=== PATIENT | male | born 1975 | race Caucasian/White ===

== ENCOUNTER 2017-04-03 16:02 | Inpatient (IN) | payer OTHER ==
[2017-04-03 16:28] LABS: Hematocrit 43.3 % (35.5-45.6); Hemoglobin 14.4 gm/dl (11.8-15.2); Mean Corpuscular HGB Conc 33 % (32-34); Mean Corpuscular Hemoglobin 32 pg (28-32); Mean Corpuscular Volume 95 fl (84-94); Platelet Count 268 K/mm3 (140-440); Red Blood Count 4.57 M/mm3 (3.65-5.03); Red Cell Distribution Width 14.3 % (13.2-15.2)
[2017-04-03 16:36] LABS: White Blood Count 26.8 K/mm3 (4.5-11.0)
[2017-04-03 16:48] LABS: Anion Gap 18 mmol/L; BUN/Creatinine Ratio 20; Blood Urea Nitrogen 18 mg/dL (9-20); Calcium 8.5 mg/dL (8.4-10.2); Carbon Dioxide 25 mmol/L (22-30); Chloride 96.7 mmol/L (98-107); Glucose 111 mg/dL (75-100); Potassium 4.3 mmol/L (3.6-5.0); Sodium 135 mmol/L (137-145)
[2017-04-03 19:42] LABS: Basophils % (Manual) 0 % (0.0-1.8); Blastocytes % (Manual) 0 %; Eosinophils % (Manual) 0.5 % (0.0-4.3); Total Cells Counted Percent 6.5
[2017-04-03 19:43] LABS: Diff Status Complete; Platelet Estimate Consistent w Auto; RBC Morphology Normal
[2017-04-03] MEDS ORDERED: NACL ONE (20:45)
--- NOTE | 2017-04-03 20:48 | Emergency Department Report ---
HPI - General Chief Complaint: Urogenital-Male Time Seen by Provider: 04/03/17 20:14 - HPI HPI: This is a 42-year-old male presents to the emergency department, sent in by Dr. Rodríguez from [facility] for further evaluation of the patient's urinary retention. Patient says that he has been having a 2 day history of trouble with urination. He denies ever having this problem before. He denies any abdominal, flank or back pain. He denies any fever, nausea or vomiting. He otherwise denies any past medical history. He has not taken anything and was not given anything for his symptoms prior to presentation. ED Past Medical Hx - Past Medical History Previous Medical History?: No - Surgical History Past Surgical History?: No - Social History Smoking Status: Never Smoker Substance Use Type: Alcohol ED Review of Systems ROS: Stated complaint: URINE PROBLEMS Other details as noted in HPI Comment: All other systems reviewed and negative Constitutional: denies: chills, fever Eyes: denies: eye pain, eye discharge, vision change ENT: denies: ear pain, throat pain Respiratory: denies: cough, shortness of breath, wheezing Cardiovascular: denies: chest pain, palpitations Gastrointestinal: denies: abdominal pain, nausea, diarrhea Genitourinary: dysuria. denies: discharge Musculoskeletal: denies: back pain, joint swelling, arthralgia Skin: denies: rash, lesions Neurological: denies: headache, weakness, paresthesias Physical Exam - Physical Exam Vital Signs: Vital Signs 04/03/17 04/03/17 04/03/17 16:09 20:15 20:26 Temperature 98.3 F 98.2 F Pulse Rate 88 Respiratory 16 18 Rate Blood Pressure 128/75 101/60 O2 Sat by Pulse 98 96 98 Oximetry Physical Exam: GENERAL: The patient is well-developed well-nourished. HENT: Normocephalic. Atraumatic. Patient has moist mucous membranes. EYES: Extraocular motions are intact. Pupils equal reactive to light bilaterally. NECK: Supple. Trachea is midline. CHEST/LUNGS: Clear to auscultation. There is no respiratory distress noted. HEART/CARDIOVASCULAR: Regular. There is no tachycardia. There is no gallop rub or murmur. ABDOMEN: Abdomen is soft, nontender. Patient has normal bowel sounds. There is some mild lower abdominal and/or suprapubic distention. SKIN: Skin is warm and dry. NEURO: The patient is awake, alert, and oriented. The patient is cooperative. The patient has no focal neurologic deficits. The patient has normal speech and gait. MUSCULOSKELETAL: There is no tenderness or deformity. There is no limitation range of motion. There is no evidence of acute injury. ED Course Vital Signs 04/03/17 04/03/17 04/03/17 16:09 20:15 20:26 Temperature 98.3 F 98.2 F Pulse Rate 88 Respiratory 16 18 Rate Blood Pressure 128/75 101/60 O2 Sat by Pulse 98 96 98 Oximetry ED Medical Decision Making - Lab Data Result diagrams: 04/03/17 16:18 04/03/17 16:18 - Radiology Data Radiology results: report reviewed PROCEDURE: CT ABDOMEN PELVIS W CON TECHNIQUE: Computerized axial tomography of the abdomen and pelvis was performed after the IV injection of iodinated nonionic contrast. HISTORY: urinary retention, leukocytosis, abd pain COMPARISON: No prior studies are available for comparison. FINDINGS: Lower Lung alfaro: There is a small amount of dependent atelectasis. No dense consolidations or effusions are identified. Upper Abdomen: There several small, subcentimeter low-density lesions scattered in the right and left lobes of the liver. These are all very similar in appearance and I suspect represents small hepatic cysts although are difficult to characterize given their small size. The liver is otherwise unremarkable. The gallbladder, the adrenal glands, the pancreas and the spleen are unremarkable. Kidneys, Ureters and Urinary bladder: No abnormalities are seen. Retroperitoneum: Atherosclerotic changes are seen in the abdominal aorta. No aneurysm is visualized. Nonspecific subcentimeter lymph nodes are seen in the retroperitoneum. No pathologically enlarged lymph nodes are identified. Bowel: The colon is unremarkable. Normal-appearing appendix is seen in the right lower quadrant. There is thickening of the 4th portion of the duodenum and mild mucosal prominence in the proximal jejunum in a few loops of small bowel laterally in the left lower quadrant. Bowel loops otherwise are unremarkable. Minimal umbilical hernia visualized containing a small amount of adipose tissue. No herniated loops of bowel are seen. Reproductive organs: Prostate gland does not appear to be enlarged. Other: No acute bony abnormalities are identified. IMPRESSION: Mild wall thickening seen in the 4th portion the duodenum. Mucosal prominence seen in the proximal small bowel left upper quadrant and left lower quadrant. I cannot exclude a nonspecific enteritis. Small low-density nodules scattered in the right and left lobes of the liver as described. I suspect these represent small cysts although are difficult to characterize given their small size. No other abnormalities are identified. Transcribed By: JOHN Dictated By: SCOOTER CHEEK MD Electronically Authenticated By: SCOOTER CHEEK MD Signed Date/Time: 04/03/17 2140 - Medical Decision Making 42-year-old presents with 2 day history of some urinary retention. He was unable to leave any urine while in the emergency department until he was catheterized. Prior to this I looked with an ultrasound and there appeared to be a moderate amount of urine within the bladder. His labs show a 27,000 white blood cell count with a left shift. CT of the abdomen and pelvis with IV contrast did not show any infectious etiology or any obvious reason for his urinary retention. Once the catheter was placed, he put out about 500 mL of urine and has some relief. Urinalysis did not show any urinary tract infection. He was started empirically on some Zosyn and blood and urine cultures have been sent. Vital signs stable and being afebrile. He will be admitted to the hospital for further evaluation and treatment and has been accepted for admission by the hospitalist, Dr Castillo. - Differential Diagnosis UTI, BPH, Malginancy, Nephrolithiasis, bladder spasm Critical Care Time: No Critical care attestation.: If time is entered above; I have spent that time in minutes in the direct care of this critically ill patient, excluding procedure time. ED Disposition Clinical Impression: Urinary retention Leukocytosis Qualifiers: Leukocytosis type: bandemia Qualified Code(s): D72.825 - Bandemia Disposition: OP ADMIT IP TO THIS HOSP Is pt being admited?: Yes Condition: Stable Referrals: PRIMARY CARE, [Primary Care Provider] - 3-5 Days Time of Disposition: 00:20
--- NOTE | 2017-04-03 21:42 | Cat Scan Report ---
FINAL REPORT PROCEDURE: CT ABDOMEN PELVIS W CON TECHNIQUE: Computerized axial tomography of the abdomen and pelvis was performed after the IV injection of iodinated nonionic contrast. HISTORY: urinary retention, leukocytosis, abd pain COMPARISON: No prior studies are available for comparison. FINDINGS: Lower Lung alfaro: There is a small amount of dependent atelectasis. No dense consolidations or effusions are identified. Upper Abdomen: There several small, subcentimeter low-density lesions scattered in the right and left lobes of the liver. These are all very similar in appearance and I suspect represents small hepatic cysts although are difficult to characterize given their small size. The liver is otherwise unremarkable. The gallbladder, the adrenal glands, the pancreas and the spleen are unremarkable. Kidneys, Ureters and Urinary bladder: No abnormalities are seen. Retroperitoneum: Atherosclerotic changes are seen in the abdominal aorta. No aneurysm is visualized. Nonspecific subcentimeter lymph nodes are seen in the retroperitoneum. No pathologically enlarged lymph nodes are identified. Bowel: The colon is unremarkable. Normal-appearing appendix is seen in the right lower quadrant. There is thickening of the 4th portion of the duodenum and mild mucosal prominence in the proximal jejunum in a few loops of small bowel laterally in the left lower quadrant. Bowel loops otherwise are unremarkable. Minimal umbilical hernia visualized containing a small amount of adipose tissue. No herniated loops of bowel are seen. Reproductive organs: Prostate gland does not appear to be enlarged. Other: No acute bony abnormalities are identified. IMPRESSION: Mild wall thickening seen in the 4th portion the duodenum. Mucosal prominence seen in the proximal small bowel left upper quadrant and left lower quadrant. I cannot exclude a nonspecific enteritis. Small low-density nodules scattered in the right and left lobes of the liver as described. I suspect these represent small cysts although are difficult to characterize given their small size. No other abnormalities are identified.
[2017-04-03 23:15] LABS: Bacteria,Urine 1+ /HPF (Negative); Bilirubin,Urine NEG (Negative); Blood,Urine SM (Negative); Ketones,Urine 20 mg/dL (Negative); Leukocyte Esterase,Urine NEG (Negative); Mucus,Urine FEW /HPF; Nitrite,Urine NEG (Negative); Protein,Urine <15 mg/dL mg/dL (Negative)
[2017-04-03] MEDS ORDERED: ZOSYN/NS 4.5GM/100ML 4.5 GM/100 ML VIAL IV ONE (23:32)
[2017-04-04] MEDS ORDERED: MILK OF MAGNESIA PO PRN (06:24)
[2017-04-04] MEDS ORDERED: TYLENOL PO PRN (06:24)
[2017-04-04] MEDS ORDERED: DULCOLAX PR PRN (06:24)
[2017-04-04] MEDS ORDERED: ZOFRAN IV PRN (06:24)
--- NOTE | 2017-04-04 06:28 | History and Physical Report ---
History of Present Illness Date of admission: 04/04/17 02:13 Chief complaint: Trouble making urine History of present illness: 42-year-old man with no significant past medical history who was sent in by his PCP because of inability to pass urine. Patient has been complaining of urinary retention for about 2 days. He has no history of this in the past. This is the first time this is occurring to him. Denies fever and denies chills denies dysuria. Past History Past Medical History: No medical history Past Surgical History: No surgical history Social history: no significant social history Family history: no significant family history Medications and Allergies Allergies Allergy/AdvReac Type Severity Reaction Status Date / Time No Known Allergies Allergy Verified 04/04/17 01:44 Home Medications Medication Instructions Recorded Confirmed Last Taken Type No Known Home Medications [No 04/04/17 04/04/17 Unknown History Reported Home Medications] Active Meds: Active Medications Enoxaparin Sodium (Lovenox) 40 mg SUB-Q QDAY TAMMY Influenza Virus Vaccine Quadrival (Fluarix Quad [id number](36 Mos+) 0.5 ml IM .ONCE ONE Stop: 04/04/17 12:01 Review of Systems All systems: negative Genitourinary Male: urinary retention Exam - Constitutional Vitals: Temp Pulse Resp BP Pulse Ox 98.6 F 71 16 95/52 96 04/04/17 03:43 04/04/17 05:50 04/04/17 05:50 04/04/17 03:43 04/04/17 03:43 General appearance: Present: no acute distress, well-nourished - EENT Eyes: Present: PERRL ENT: hearing intact, clear oral mucosa - Neck Neck: Present: supple, normal ROM - Respiratory Respiratory effort: normal Respiratory: bilateral: CTA - Cardiovascular Heart Sounds: Present: S1 & S2. Absent: rub, click - Extremities Extremities: pulses symmetrical, No edema Peripheral Pulses: within normal limits - Abdominal General gastrointestinal: Present: soft, non-tender, non-distended, normal bowel sounds Male genitourinary: Present: normal - Integumentary Integumentary: Present: clear, warm, dry - Musculoskeletal Musculoskeletal: gait normal, strength equal bilaterally - Psychiatric Psychiatric: appropriate mood/affect, intact judgment & insight - Neurologic Neurologic: CNII-XII intact, moves all extremities Results - Labs CBC & Chem 7: 04/03/17 16:18 04/03/17 16:18 Labs: Laboratory Last Values WBC 26.8 K/mm3 (4.5-11.0) H 04/03/17 16:18 RBC 4.57 M/mm3 (3.65-5.03) 04/03/17 16:18 Hgb 14.4 gm/dl (11.8-15.2) 04/03/17 16:18 Hct 43.3 % (35.5-45.6) 04/03/17 16:18 MCV 95 fl (84-94) H 04/03/17 16:18 MCH 32 pg (28-32) 04/03/17 16:18 MCHC 33 % (32-34) 04/03/17 16:18 RDW 14.3 % (13.2-15.2) 04/03/17 16:18 Plt Count 268 K/mm3 (140-440) 04/03/17 16:18 Add Manual Diff Complete 04/03/17 16:18 Total Counted 200 04/03/17 16:18 Seg Neuts % (Manual) 73.0 % (40.0-70.0) H 04/03/17 16:18 Band Neutrophils % 17.5 % 04/03/17 16:18 Lymphocytes % (Manual) 3.0 % (13.4-35.0) L 04/03/17 16:18 Reactive Lymphs % (Man) 0 % 04/03/17 16:18 Monocytes % (Manual) 6.0 % (0.0-7.3) 04/03/17 16:18 Eosinophils % (Manual) 0.5 % (0.0-4.3) 04/03/17 16:18 Basophils % (Manual) 0 % (0.0-1.8) 04/03/17 16:18 Metamyelocytes % 0 % 04/03/17 16:18 Myelocytes % 0 % 04/03/17 16:18 Promyelocytes % 0 % 04/03/17 16:18 Blast Cells % 0 % 04/03/17 16:18 Nucleated RBC % Not Reportable 04/03/17 16:18 Seg Neutrophils # Man 19.6 K/mm3 (1.8-7.7) H 04/03/17 16:18 Band Neutrophils # 4.7 K/mm3 04/03/17 16:18 Lymphocytes # (Manual) 0.8 K/mm3 (1.2-5.4) L 04/03/17 16:18 Abs React Lymphs (Man) 0.0 K/mm3 04/03/17 16:18 Monocytes # (Manual) 1.6 K/mm3 (0.0-0.8) H 04/03/17 16:18 Eosinophils # (Manual) 0.1 K/mm3 (0.0-0.4) 04/03/17 16:18 Basophils # (Manual) 0.0 K/mm3 (0.0-0.1) 04/03/17 16:18 Metamyelocytes # 0.0 K/mm3 04/03/17 16:18 Myelocytes # 0.0 K/mm3 04/03/17 16:18 Promyelocytes # 0.0 K/mm3 04/03/17 16:18 Blast Cells # 0.0 K/mm3 04/03/17 16:18 WBC Morphology Not Reportable 04/03/17 16:18 Hypersegmented Neuts Not Reportable 04/03/17 16:18 Hyposegmented Neuts Not Reportable 04/03/17 16:18 Hypogranular Neuts Not Reportable 04/03/17 16:18 Smudge Cells Not Reportable 04/03/17 16:18 Toxic Granulation Not Reportable 04/03/17 16:18 Toxic Vacuolation Not Reportable 04/03/17 16:18 Dohle Bodies Not Reportable 04/03/17 16:18 Pelger-Huet Anomaly Not Reportable 04/03/17 16:18 Tracy Rods Not Reportable 04/03/17 16:18 Platelet Estimate Consistent w auto 04/03/17 16:18 Clumped Platelets Not Reportable 04/03/17 16:18 Plt Clumps, EDTA Not Reportable 04/03/17 16:18 Large Platelets Not Reportable 04/03/17 16:18 Giant Platelets Not Reportable 04/03/17 16:18 Platelet Satelliting Not Reportable 04/03/17 16:18 Plt Morphology Comment Not Reportable 04/03/17 16:18 RBC Morphology Normal 04/03/17 16:18 Dimorphic RBCs Not Reportable 04/03/17 16:18 Polychromasia Not Reportable 04/03/17 16:18 Hypochromasia Not Reportable 04/03/17 16:18 Poikilocytosis Not Reportable 04/03/17 16:18 Anisocytosis Not Reportable 04/03/17 16:18 Microcytosis Not Reportable 04/03/17 16:18 Macrocytosis Not Reportable 04/03/17 16:18 Spherocytes Not Reportable 04/03/17 16:18 Pappenheimer Bodies Not Reportable 04/03/17 16:18 Sickle Cells Not Reportable 04/03/17 16:18 Target Cells Not Reportable 04/03/17 16:18 Tear Drop Cells Not Reportable 04/03/17 16:18 Ovalocytes Not Reportable 04/03/17 16:18 Helmet Cells Not Reportable 04/03/17 16:18 Harmon-Barryton Bodies Not Reportable 04/03/17 16:18 Kindred Rings Not Reportable 04/03/17 16:18 Galion Cells Not Reportable 04/03/17 16:18 Bite Cells Not Reportable 04/03/17 16:18 Crenated Cell Not Reportable 04/03/17 16:18 Elliptocytes Not Reportable 04/03/17 16:18 Acanthocytes (Spur) Not Reportable 04/03/17 16:18 Rouleaux Not Reportable 04/03/17 16:18 Hemoglobin C Crystals Not Reportable 04/03/17 16:18 Schistocytes Not Reportable 04/03/17 16:18 Malaria parasites Not Reportable 04/03/17 16:18 Richard Bodies Not Reportable 04/03/17 16:18 Hem Pathologist Commnt No 04/03/17 16:18 Sodium 135 mmol/L (137-145) L 04/03/17 16:18 Potassium 4.3 mmol/L (3.6-5.0) 04/03/17 16:18 Chloride 96.7 mmol/L (98-107) L 04/03/17 16:18 Carbon Dioxide 25 mmol/L (22-30) 04/03/17 16:18 Anion Gap 18 mmol/L 04/03/17 16:18 BUN 18 mg/dL (9-20) 04/03/17 16:18 Creatinine 0.9 mg/dL (0.8-1.5) 04/03/17 16:18 Estimated GFR > 60 ml/min 04/03/17 16:18 BUN/Creatinine Ratio 20 % 04/03/17 16:18 Glucose 111 mg/dL (75-100) H 04/03/17 16:18 Calcium 8.5 mg/dL (8.4-10.2) 04/03/17 16:18 Urine Color Yellow (Yellow) 04/03/17 22:40 Urine Turbidity Clear (Clear) 04/03/17 22:40 Urine pH 7.0 (5.0-7.0) 04/03/17 22:40 Ur Specific [place] 1.048 (1.003-1.030) H 04/03/17 22:40 Urine Protein <15 mg/dl mg/dL (Negative) 04/03/17 22:40 Urine Glucose (UA) Neg mg/dL (Negative) 04/03/17 22:40 Urine Ketones 20 mg/dL (Negative) 04/03/17 22:40 Urine Blood Sm (Negative) 04/03/17 22:40 Urine Nitrite Neg (Negative) 04/03/17 22:40 Urine Bilirubin Neg (Negative) 04/03/17 22:40 Urine Urobilinogen 4.0 mg/dL (<2.0) 04/03/17 22:40 Ur Leukocyte Esterase Neg (Negative) 04/03/17 22:40 Urine WBC (Auto) 1.0 /HPF (0.0-6.0) 04/03/17 22:40 Urine RBC (Auto) 8.0 /HPF (0.0-6.0) 04/03/17 22:40 Urine Bacteria (Auto) 1+ /HPF (Negative) 04/03/17 22:40 Urine Mucus Few /HPF 04/03/17 22:40 - Imaging and Cardiology CT scan - abdomen: image reviewed (liver cysts noted, no acute findings otherwise) Assessment and Plan Assessment and plan: 42-year-old man who presents to the ER urinary retention. He was unable to make urine on so he was catheterized - Patient Problems (1) Leukocytosis Current Visit: Yes Status: Acute Qualifiers: Leukocytosis type: bandemia Qualified Code(s): D72.825 - Bandemia Plan to address problem: I highly suspect that this may be a lab error. Repeat CBC, hold antibiotics at this time as there is no obvious source of infection, urinalysis was essentially negative. (2) Urinary retention Current Visit: Yes Status: Acute Plan to address problem: Status post Canseco catheter, urology consults. added finasteride and flomax We'll most likely need to be discharged with the Canseco catheter
[2017-04-04 08:59] LABS: Hematocrit 40.2 % (35.5-45.6); Hemoglobin 13.7 gm/dl (11.8-15.2); Mean Corpuscular HGB Conc 34 % (32-34); Mean Corpuscular Hemoglobin 32 pg (28-32); Mean Corpuscular Volume 94 fl (84-94); Platelet Count 278 K/mm3 (140-440); Red Blood Count 4.27 M/mm3 (3.65-5.03); Red Cell Distribution Width 13.8 % (13.2-15.2); White Blood Count 18.3 K/mm3 (4.5-11.0)
[2017-04-04] MEDS: FLOMAX PO SCH (10:02)
[2017-04-04] MEDS: PROSCAR PO SCH (10:03)
[2017-04-04] MEDS: LOVENOX SUB-Q SCH (10:03)
--- NOTE | 2017-04-04 11:07 | Progress Note ---
Assessment and Plan small gland on betzy culture urethral d/c voiding trial in am Subjective Date of service: 04/04/17 Principal diagnosis: urinary retention Objective - Constitutional Vitals: Vital Signs - 12hr 04/04/17 04/04/17 04/04/17 01:26 01:43 02:00 Temperature 98.5 F Pulse Rate 86 Pulse Rate [ Right Radial] Respiratory 18 Rate Blood Pressure 103/59 99/61 O2 Sat by Pulse Oximetry 04/04/17 04/04/17 04/04/17 02:30 03:43 05:50 Temperature 98.6 F Pulse Rate 71 Pulse Rate [ 71 Right Radial] Respiratory 18 16 Rate Blood Pressure 100/61 95/52 O2 Sat by Pulse 96 Oximetry 04/04/17 08:05 Temperature 98.3 F Pulse Rate 69 Pulse Rate [ Right Radial] Respiratory 12 Rate Blood Pressure 110/61 O2 Sat by Pulse 95 Oximetry General appearance: Present: no acute distress - Respiratory Respiratory effort: normal - Gastrointestinal General gastrointestinal: Present: soft, non-tender - Labs CBC & Chem 7: 04/04/17 08:42 04/03/17 16:18 Labs: Abnormal lab results 04/03/17 04/03/17 04/03/17 Range/Units 16:18 16:18 22:40 WBC 26.8 H (4.5-11.0) K/mm3 MCV 95 H (84-94) fl Seg Neuts % (Manual) 73.0 H (40.0-70.0) % Lymphocytes % (Manual) 3.0 L (13.4-35.0) % Seg Neutrophils # Man 19.6 H (1.8-7.7) K/mm3 Lymphocytes # (Manual) 0.8 L (1.2-5.4) K/mm3 Monocytes # (Manual) 1.6 H (0.0-0.8) K/mm3 Sodium 135 L (137-145) mmol/L Chloride 96.7 L (98-107) mmol/L Glucose 111 H (75-100) mg/dL Ur Specific [place] 1.048 H (1.003-1.030) 04/04/17 Range/Units 08:42 WBC 18.3 H (4.5-11.0) K/mm3 MCV (84-94) fl Seg Neuts % (Manual) (40.0-70.0) % Lymphocytes % (Manual) (13.4-35.0) % Seg Neutrophils # Man (1.8-7.7) K/mm3 Lymphocytes # (Manual) (1.2-5.4) K/mm3 Monocytes # (Manual) (0.0-0.8) K/mm3 Sodium (137-145) mmol/L Chloride (98-107) mmol/L Glucose (75-100) mg/dL Ur Specific [place] (1.003-1.030)
[2017-04-04] MEDS ORDERED: Fluarix Quad 2017-2018(36 MOS+ IM ONE (12:00)
--- NOTE | 2017-04-04 12:11 | Consultation ---
HISTORY OF PRESENT ILLNESS: The patient is a gentleman who presented to the hospital with urinary retention. He denies any voiding issues. He has a thick discharge around the Canseco. He speaks Kosovan, but we can get a good history from him. He has no previous urological history. PAST MEDICAL HISTORY: Negative. PAST SURGICAL HISTORY: Negative. SOCIAL HISTORY: Negative. FAMILY HISTORY: Negative. REVIEW OF SYSTEMS: Recent difficulty of voiding for 2 days. He denies recent sexual activity, but I do not know that his whole history is reliable. PHYSICAL EXAMINATION: GENERAL: He is awake, alert. He is in no distress. ABDOMEN: Soft, nondistended. GENITALIA: Thick urethral discharge around the catheter. Testes descended bilaterally, no epididymitis. Digital rectal exam, a very small prostate, nontender. IMPRESSION: He has urinary retention. A thickened urethral discharge, significantly elevated white count. CT scan otherwise small liver cysts and thickened duodenum. PLAN: Urethral discharge, broad-spectrum antibiotics, begin Levaquin p.o., culture the urethral discharge, catheter out in the morning, and recheck white count. JOB# [id number] YESIKA/FERMIN
--- NOTE | 2017-04-04 13:48 | Event Note ---
Date: 04/04/17 42-year-old male presents with urinary obstruction. Spoke to urology. Appears to be a urethritis. Plan is to treat with antibiotics patient had leukocytosis. Had thick purulent exudate at the urethral area. Plan is to discharge in a.m. and discontinue urinary catheter. Stable at this particular time.
--- NOTE | 2017-04-05 08:31 | Progress Note ---
Assessment and Plan urine clear suspect bad urethritis cultures cath out Subjective Date of service: 04/05/17 Principal diagnosis: urinary retention Objective - Constitutional Vitals: Vital Signs - 12hr 04/04/17 04/04/17 21:24 22:00 Temperature 98.5 F Pulse Rate 82 Respiratory 16 18 Rate Blood Pressure 104/63 O2 Sat by Pulse 95 Oximetry General appearance: Present: no acute distress - Neck Neck: supple - Respiratory Respiratory effort: normal - Labs CBC & Chem 7: 04/04/17 08:42 04/03/17 16:18 Labs: Abnormal lab results 04/04/17 Range/Units 08:42 WBC 18.3 H (4.5-11.0) K/mm3
[2017-04-05 08:38] VITALS: BP 109/72
[2017-04-05 09:54] LABS: Hematocrit 42.2 % (35.5-45.6); Hemoglobin 14.3 gm/dl (11.8-15.2); Mean Corpuscular HGB Conc 34 % (32-34); Mean Corpuscular Hemoglobin 32 pg (28-32); Mean Corpuscular Volume 95 fl (84-94); Platelet Count 324 K/mm3 (140-440); Red Blood Count 4.45 M/mm3 (3.65-5.03); Red Cell Distribution Width 13.9 % (13.2-15.2); White Blood Count 13.2 K/mm3 (4.5-11.0)
[2017-04-05] MEDS ORDERED: LEVAQUIN PO SCH (10:00)
[2017-04-05] MEDS: LOVENOX SUB-Q SCH (10:21)
[2017-04-05] MEDS: PROSCAR PO SCH (10:24)
[2017-04-05] MEDS: FLOMAX PO SCH (10:24)
[2017-04-05] MEDS ORDERED: XYLOCAINE 1% MPF 5 mL INFILTRATI ONE (11:34)
[2017-04-05] MEDS ORDERED: ROCEPHIN IM ONE (11:34)
--- NOTE | 2017-04-05 11:34 | Discharge Summary ---
Providers - Providers Date of Admission: 04/04/17 02:13 Date of discharge: 04/05/17 Attending physician: GABRIEL GARCIA MD 04/04/17 06:24 Consult to Physician [CONS] Routine Consulting Provider: RAISA FALLON Reason For Exam: urinary retention Place consult to:: Gabriela Notified:: no Comment:: This is a doctor to Dr consult Primary care physician: COOKER SODA Hospitalization Condition: Stable Pertinent studies: CT abdomen and pelvis no abnormalities identified that can explain the urinary retention. Procedures: Catheterized Hospital course: 42-year-old man with no significant past medical history who was sent in by his PCP because of inability to pass urine. Patient has been complaining of urinary retention for about 2 days. He has no history of this in the past. This is the first time this is occurring to him. Denies fever and denies chills denies dysuria. Patient was admitted to the floor, he was catheterized and urinary retention resolved. Patient was treated with antibiotics for suspected due to urethritis with Levaquin. Gonococcal culture was sent and I empirically treated with 250 mg of IM ceftriaxone. Patient will continue with his by mouth antibiotics. Patient was pee himself from last night. Patient was hemodynamically stable at the time of discharge. Urology consult appreciated. Disposition: DC-01 TO HOME OR SELFCARE Time spent for discharge: 31 minutes - Discharge Diagnoses (1) Leukocytosis Status: Acute Qualifiers: Leukocytosis type: bandemia Qualified Code(s): D72.825 - Bandemia (2) Urinary retention Status: Acute Core Measure Documentation - Palliative Care Palliative Care/ Comfort Measures: Not Applicable - Core Measures Any of the following diagnoses?: none Exam - Physical Exam Narrative exam: Not in cardiopulmonary distress. The patient appeared well nourished and normally developed. Vital signs as documented. Head exam is unremarkable. No scleral icterus . Neck is without jugular venous distension, thyromegaly, or carotid bruits. Lungs are clear to auscultation. Cardiac exam reveals regular rate and Rhythm. First and second heart sounds normal. No murmurs, rubs or gallops. Abdominal exam reveals normal bowel sounds, no masses, no organomegaly and no aortic enlargement. Extremities are nonedematous and both femoral and pedal pulses are normal. ACCESS SERVICES REPRESENTATIVE: Alert and oriented 3. No focal weakness. - Constitutional Vitals: Temp Pulse Resp BP Pulse Ox 98.0 F 77 16 109/72 92 04/05/17 08:29 04/05/17 08:29 04/05/17 08:29 04/05/17 08:29 04/05/17 08:29 Plan Activity: no restrictions Weight Bearing Status: Full Weight Bearing Diet: regular Additional Instructions: Please follow at [facility] in 1 week Follow up with: PRIMARY MD GALE [Primary Care Provider] - 3-5 Days Prescriptions: Levofloxacin [Levaquin TAB] 500 mg PO Q24HR #7 tablet
== END 2017-04-05 16:00 | disposition home or self-care (01) | DRG 696 ==
LOC: ED 16:02 → 3A 04-04 02:13
PROVIDERS: ADMIT Internal Medicine; ATTEND Internal Medicine
PROC: 3E0234Z Introduction of Serum, Toxoid and Vaccine into Muscle, Percutaneous Approach (ICD-10-PCS; principal; 2017-04-04)
DX: R33.0 Drug induced retention of urine (principal); D72.829 Elevated white blood cell count, unspecified; Z23 Encounter for immunization
CPT/HCPCS: 36415; 74177; 80048; 81001; 85007; 85025; 85027; 87040; 87086; 87116; 90686; 96365; J0696; J1650; J2543; Q9967